=== PATIENT | male | born 1980 | race Caucasian/White ===

== ENCOUNTER 2016-08-26 18:06 | Emergency (ER) | payer SELFPAY ==
[~2016-08-26] VITALS: Ht 190.5 cm; Wt 96.4 kg
[~2016-08-26 18:06] MED LIST: MOTRIN; NITR0.4T8 SL
[2016-08-26 18:07] VITALS: BP 129/69
[2016-08-26] MEDS ORDERED: LORazepam 1MG TABLET PO ONE (19:00)
[2016-08-26 19:29] LABS: BLOOD UREA NITROGEN 19 mg/dL (7-18)
== END 2016-08-26 19:43 | disposition home or self-care (01) ==
LOC: ED 19:14
DX: T78.49XA Other allergy, initial encounter (principal); R45.1 Restlessness and agitation; R11.10 Vomiting, unspecified; F41.1 Generalized anxiety disorder; I25.2 Old myocardial infarction; G56.00 Carpal tunnel syndrome, unspecified upper limb; X58.XXXA Exposure to other specified factors, initial encounter
CPT/HCPCS: 36415; 80048; 99283

== ENCOUNTER 2016-09-30 09:35 | Emergency (ER) | payer SELFPAY ==
[~2016-09-30] VITALS: Ht 185.4 cm; Wt 95.0 kg
[2016-09-30] MEDS ORDERED: LORazepam 2 MG/ML, 1ML ONE (10:08)
[2016-09-30] MEDS ORDERED: LORazepam 2 MG/ML, 1ML IVPush ONE (10:30)
[2016-09-30 10:46] LABS: BLOOD UREA NITROGEN 22 mg/dL (7-18)
[2016-09-30 10:54] LABS: IS PT STATUS REG ER OR PRE ER? YES
[2016-09-30 11:47] VITALS: BP 118/72
== END 2016-09-30 12:17 | disposition home or self-care (01) ==
LOC: ED 11:30
DX: R07.89 Other chest pain (principal); F41.1 Generalized anxiety disorder; K04.6 Periapical abscess with sinus; G56.00 Carpal tunnel syndrome, unspecified upper limb; Z87.891 Personal history of nicotine dependence
CPT/HCPCS: 36415; 71010; 80048; 82040; 84439; 84443; 84484; 85025; 93005; 96374; 99285; J2060

== ENCOUNTER 2016-10-02 22:13 | Inpatient (IN) | payer SELFPAY ==
[~2016-10-02] VITALS: Ht 190.5 cm; Wt 92.9 kg
[2016-10-02] MEDS ORDERED: SODIUM CHLORIDE 0.9% 1,000ML IVBOLUS ONE (22:30)
[2016-10-02] MEDS ORDERED: SODIUM CHLORIDE FLUSH 10ML SYR IVF ONE (22:30)
[2016-10-02 22:41] LABS: ASPARTATE AMINO TRANSFERASE 32 U/L (15-37); BLOOD UREA NITROGEN 27 mg/dL (7-18)
[2016-10-02] MEDS ORDERED: LORazepam 2 MG/ML, 1ML ONE (23:51)
[2016-10-02] MEDS ORDERED: OMNIPAQUE 350 MG/ML, 100ML BOTTLE ONE (23:59)
[2016-10-03] MEDS ORDERED: LORazepam 2 MG/ML, 1ML IVPush ONE ×4 (00:30→15:00)
[2016-10-03] MEDS ORDERED: DOCUSATE 100 MG CAPSULE PO PRN (00:30)
[2016-10-03] MEDS ORDERED: TEMAZEPAM 15 MG CAPSULE PO PRN (00:30)
[2016-10-03] MEDS ORDERED: ENOXAPARIN 40 MG/0.4 ML SQ SCH (00:30)
[2016-10-03 01:10] VITALS: BP 134/69
[2016-10-03] MEDS: SODIUM CHLORIDE 0.9% 1,000 ML IV SCH ×3 (02:22→21:00)
[2016-10-03 04:46] LABS: DAU SCREEN DISCLAIMER
[2016-10-03 07:48] VITALS: BP 111/68
[2016-10-03] MEDS ORDERED: GADOBUTROL 10 MMOL/10 ML PFS ONE ×2 (08:34→15:37)
[2016-10-03 14:00] VITALS: BP 119/67
[2016-10-03 18:16] VITALS: BP 136/71
== END 2016-10-03 23:15 | disposition left against medical advice (07) | DRG 914 ==
LOC: ED 22:58 → EDIP 23:44 → 4EST 10-03 00:49
PROVIDERS: ADMIT Hospitalist; ATTEND Hospitalist
DX: S29.9XXA Unspecified injury of thorax, initial encounter (principal); S19.9XXA Unspecified injury of neck, initial encounter; X58.XXXA Exposure to other specified factors, initial encounter; Z83.3 Family history of diabetes mellitus; Z82.49 Family history of ischemic heart disease and other diseases of the circulatory system; I10 Essential (primary) hypertension; E87.6 Hypokalemia; F41.1 Generalized anxiety disorder; I25.2 Old myocardial infarction; G56.00 Carpal tunnel syndrome, unspecified upper limb; Y93.89 Activity, other specified; Y92.89 Other specified places as the place of occurrence of the external cause; Y99.8 Other external cause status; Z91.14 Patient's other noncompliance with medication regimen
CPT/HCPCS: 36415; 70450; 70496; 70498; 70553; 72156; 72157; 80047; 80053; 80061; 80307; 85025; 85610; 85730; 93005; 96361; 96374; A9585; J1650; Q9967; J2060; J7030

== ENCOUNTER 2016-10-06 20:08 | Emergency (ER) | payer SELFPAY ==
[2016-10-06 20:25] VITALS: BP 126/82
[2016-10-06] MEDS ORDERED: SODIUM CHLORIDE FLUSH 10ML SYR IVF ONE (20:30)
[2016-10-06] MEDS ORDERED: LORazepam 2 MG/ML, 1ML ONE (20:37)
[2016-10-06 20:56] LABS: BLOOD UREA NITROGEN 22 mg/dL (7-18)
[2016-10-06] MEDS ORDERED: LORazepam 2 MG/ML, 1ML IVPush ONE (21:00)
[2016-10-06] MEDS ORDERED: IBUPROFEN 200 MG TABLET ONE (22:41)
[2016-10-06] MEDS ORDERED: IBUPROFEN 200 MG TABLET PO ONE (23:00)
== END 2016-10-06 23:20 ==
LOC: ED 22:09
DX: R53.1 Weakness (principal); I10 Essential (primary) hypertension; I25.2 Old myocardial infarction; Z86.73 Personal history of transient ischemic attack (TIA), and cerebral infarction without residual deficits
CPT/HCPCS: 36415; 70450; 70551; 71010; 80047; 80048; 80307; 82040; 84484; 85025; 85610; 93005; 96374; 99285; J2060

== ENCOUNTER 2017-07-06 17:59 | Emergency (ER) | payer MEDICAID ==
[~2017-07-06] VITALS: Ht 190.5 cm; Wt 85.5 kg
[~2017-07-06 17:59] MED LIST changes: +NITR0.4T28 SL; -NITR0.4T8 SL
[2017-07-06 18:04] VITALS: BP 135/83
== END 2017-07-06 20:51 | disposition home or self-care (01) ==
LOC: ED 20:45
DX: S53.21XA Traumatic rupture of right radial collateral ligament, initial encounter (principal); S63.659A Sprain of metacarpophalangeal joint of unspecified finger, initial encounter; F17.210 Nicotine dependence, cigarettes, uncomplicated; F41.9 Anxiety disorder, unspecified; V49.49XA Driver injured in collision with other motor vehicles in traffic accident, initial encounter; Y93.89 Activity, other specified; Y99.8 Other external cause status; Y92.410 Unspecified street and highway as the place of occurrence of the external cause
CPT/HCPCS: 29125; 99284

== ENCOUNTER 2018-04-18 09:37 | Emergency (ER) | payer MEDICAID ==
[~2018-04-18] VITALS: Ht 190.5 cm; Wt 86.8 kg
[2018-04-18] MEDS ORDERED: SODIUM CHLORIDE FLUSH 10ML SYR IVF ONE (11:00)
[2018-04-18] MEDS ORDERED: ASPIRIN 81 MG TABLET CHEW PO ONE (11:00)
[2018-04-18] MEDS ORDERED: LORazepam 2 MG/ML, 1ML IVPush ONE (11:00)
[2018-04-18] MEDS ORDERED: ASPIRIN 81 MG TABLET CHEW ONE (11:11)
[2018-04-18] MEDS ORDERED: LORazepam 1MG TABLET ONE (11:12)
[2018-04-18 11:14] LABS: BASOPHILS # (AUTO) 0.02 x10^3/uL (0-0.1); BASOPHILS % (AUTO) 0 % (0-1); EOSINOPHILS # (AUTO) 0.08 x10^3/uL (0-0.4); EOSINOPHILS % (AUTO) 2 % (1-7); LYMPHOCYTES % (AUTO) 28 % (22-44); MD NO; MEAN CORPUSCULAR HGB CONC 34.1 g/dL (33.2-36.2); MONOCYTES # (AUTO) 0.46 x10^3/uL (0.2-0.8); MONOCYTES % (AUTO) 11 % (2-9); NEUTROPHILS # (AUTO) 2.55 x10^3/uL (1.8-6.8); NEUTROPHILS % (AUTO) 59 % (42-75); PLATELET COUNT 302 x10^3/uL (130-400); RED BLOOD COUNT 4.99 x10^6/uL (4.38-5.82); RED CELL DISTRIBUTION WIDTH 12.7 % (9.4-14.8)
[2018-04-18 11:21] LABS: ALBUMIN 4.1 g/dL (3.4-5.0); ANION GAP 3 mmol/L (5-15); CALCIUM 8.5 mg/dL (8.5-10.1); CHLORIDE 110 mmol/L (98-107); CREATININE 1.13 mg/dL (0.7-1.3)
[2018-04-18 11:24] LABS: TROPONIN I < 0.015 ng/mL (0.000-0.045)
[2018-04-18 11:25] VITALS: BP 129/80
== END 2018-04-18 12:10 | disposition home or self-care (01) ==
LOC: ED 11:52
DX: R07.89 Other chest pain (principal); F17.210 Nicotine dependence, cigarettes, uncomplicated; I10 Essential (primary) hypertension; I25.2 Old myocardial infarction
CPT/HCPCS: 36415; 80048; 82040; 83880; 84484; 85025; 93005; 99284

== ENCOUNTER 2019-03-31 09:52 | Emergency (ER) | payer MEDICAID ==
[~2019-03-31] VITALS: Ht 182.9 cm; Wt 94.3 kg
[2019-03-31 10:07] VITALS: BP 125/76
--- NOTE | 2019-03-31 10:23 | NUR ---
PATIENT BROUGTH BACK FROM TRIAGE WITH CHIEF COMPLAINT OF RIGHT KNEE PAIN STARTING A "FEW WEEKS AGO", WITH INTERMITTENT NUMBNESS, PULSES PRESENT. PATIENT DENIES RECENT TRAUMA
--- NOTE | 2019-03-31 10:46 | NUR ---
PATIENT TO IMAGING
--- NOTE | 2019-03-31 11:00 | NUR ---
DISCHARGE INSTUCTIONS REVIEWED
--- NOTE | 2019-03-31 11:09 | NUR ---
IMMOBILIZER APPLIED, PT REFUSED CRUTCHES
== END 2019-03-31 11:12 | disposition home or self-care (01) ==
LOC: ED 10:45
DX: M25.561 Pain in right knee (principal); I25.2 Old myocardial infarction; I10 Essential (primary) hypertension; F17.200 Nicotine dependence, unspecified, uncomplicated
CPT/HCPCS: 29505; 99283

== ENCOUNTER 2019-08-04 12:12 | Emergency (ER) | payer MEDICAID ==
[~2019-08-04] VITALS: Ht 190.5 cm; Wt 95.5 kg
[2019-08-04 12:14] VITALS: BP 130/91
[2019-08-04] MEDS ORDERED: LORazepam 1MG TABLET ONE (12:42)
[2019-08-04] MEDS ORDERED: LORazepam 1MG TABLET PO ONE (13:00)
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
--- NOTE | 2019-08-04 13:26 | NUR ---
DORI SEAY AT BEDSIDE.
[2019-08-04] MEDS ORDERED: MAALOX/HYOSCYAMINE/LIDOCAINE 45 ML BTL PO ONE (13:30)
[2019-08-04] MEDS ORDERED: ONDANSETRON ODT 4 MG PO ONE (13:30)
--- NOTE | 2019-08-04 13:50 | NUR ---
BREAK RN: FRANKIE MEADOWS IN ROOM. WILL CONTINUE TO MONITOR WHILE PRIMARY RN IS ON BREAK.
--- NOTE | 2019-08-04 14:50 | NUR ---
Patient/Caregiver given discharge instructions and they have confirmed that they understand the instructions. Patient ambulatory with steady gait.
== END 2019-08-04 14:53 | disposition home or self-care (01) ==
LOC: ED 12:56
DX: F41.1 Generalized anxiety disorder (principal); I10 Essential (primary) hypertension; I25.2 Old myocardial infarction; Z86.73 Personal history of transient ischemic attack (TIA), and cerebral infarction without residual deficits; Z87.891 Personal history of nicotine dependence
CPT/HCPCS: 93005; 99283

== ENCOUNTER 2020-02-28 09:44 | Emergency (ER) | payer MEDICAID ==
[~2020-02-28] VITALS: Ht 190.5 cm; Wt 96.0 kg
[2020-02-28 09:46] VITALS: BP 159/85
--- NOTE | 2020-02-28 09:54 | NUR ---
PT REFUSED ORAL TEMP "THE BOX IS OPEN AND I DONT WANT THAT PUT IN MY MOUTH" TEMPORAL SCAN DONE
--- NOTE | 2020-02-28 10:01 | NUR ---
BREAK RN: THIS IS A 39 YEAR OLD MALE WHO C/O "A COUPLE OF WEEKS AGO ON THE CORNER OF MY LEFT EYE THERE WAS A CUT AND IT STARTED OOZING OUT WHITE STUFF, IT WAS JUNKY, NOW THE VISION IN IT IS 3/4 GONE. WHEN I TURN MY HEAD LEFT AND RIGHT I GET DIZZY"
[2020-02-28] MEDS ORDERED: PROPARACAINE OPHTH 0.5%, 15ML ONE (10:03)
[2020-02-28] MEDS ORDERED: PROPARACAINE OPHTH 0.5%, 15ML LEFTEYE ONE (10:30)
--- NOTE | 2020-02-28 10:30 | NUR ---
dr pemberton spoke with dr mortensen
[2020-02-28] MEDS ORDERED: MECLIZINE CHEWABLE 25 MG TAB ONE (10:40)
--- NOTE | 2020-02-28 10:46 | NUR ---
MEDICATED PER EMAR- THEN DISCHARGED IN CARE OF SPOUSE IMMEDIATELT SO TO MAKE OPTHO APPT IN 15 MINUTES
[2020-02-28] MEDS ORDERED: MECLIZINE CHEWABLE 25 MG TAB PO ONE (11:00)
== END 2020-02-28 10:46 | disposition home or self-care (01) ==
LOC: ED 10:30
DX: H54.62 Unqualified visual loss, left eye, normal vision right eye (principal); R42 Dizziness and giddiness; I25.2 Old myocardial infarction; I10 Essential (primary) hypertension; F17.200 Nicotine dependence, unspecified, uncomplicated
CPT/HCPCS: 99283

== ENCOUNTER 2020-08-21 17:38 | Emergency (ER) | payer MEDICAID ==
[~2020-08-21] VITALS: Ht 190.5 cm; Wt 92.8 kg
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
--- NOTE | 2020-08-21 18:12 | NUR ---
PT SITTING UPRIGHT IN GURNEY, SPEAKING CLEARLY WITH FULL SENTENCES, PROTECTING OWN AIRWAY AT THIS TIME.
[2020-08-21] MEDS ORDERED: LORazepam 2 MG/ML, 1ML ONE (18:25)
[2020-08-21] MEDS ORDERED: LORazepam 2 MG/ML, 1ML IVPush ONE (18:30)
[2020-08-21] MEDS ORDERED: SODIUM CHLORIDE FLUSH 10ML SYR IVF ONE (18:30)
--- NOTE | 2020-08-21 19:08 | NUR ---
PT RESTING IN BED COMFORTABLY. CALL LIGHT WITHIN REACH. AT BEDSIDE
[2020-08-21] MEDS ORDERED: OXYMETAZOLINE NASAL SPRAY 0.05%,30ML ONE (19:59)
[2020-08-21] MEDS ORDERED: OXYMETAZOLINE NASAL SPRAY 0.05%, 15ML NAS ONE (20:00)
--- NOTE | 2020-08-21 20:15 | NUR ---
ENT AT BEDSIDE
--- NOTE | 2020-08-21 20:58 | NUR ---
RECEIVED REPORT FROM MARJ.
[2020-08-21 21:35] VITALS: BP 121/80
== END 2020-08-21 21:38 | disposition home or self-care (01) ==
LOC: ED 18:08
DX: S12.8XXA Fracture of other parts of neck, initial encounter (principal); F41.1 Generalized anxiety disorder; Y08.89XA Assault by other specified means, initial encounter; Y93.89 Activity, other specified; Y92.89 Other specified places as the place of occurrence of the external cause; Y99.8 Other external cause status
CPT/HCPCS: 96374; 99283; J2060

== ENCOUNTER 2020-11-03 21:30 | Emergency (ER) | payer MEDICAID ==
[~2020-11-03] VITALS: Ht 190.5 cm; Wt 95.0 kg
[2020-11-03 21:35] VITALS: BP 166/104
== END 2020-11-03 22:44 | disposition home or self-care (01) ==
LOC: ED 22:42
DX: M79.10 Myalgia, unspecified site (principal); R50.9 Fever, unspecified; R05 Cough; Z20.822 Contact with and (suspected) exposure to COVID-19; I10 Essential (primary) hypertension; F17.200 Nicotine dependence, unspecified, uncomplicated
CPT/HCPCS: 87635; 99283

== ENCOUNTER 2020-11-07 21:38 | Emergency (ER) | payer MEDICAID ==
--- NOTE | 2020-11-07 21:53 | NUR ---
PT ARRIVES WITH S/O. VERY RUDE TO STAFF IN TRIAGE. DEMANDING TO BE TRAIGED TOGETHER. DEMANDING TO BE ROOMED TOGETHER. BOTH WERE EDUCATED ON PROCESS. PTS THEN BECOME IRATE AND STARTED YELLING AT STAFF, CUSSING AND POSTURING AGGRESSIVELY. ESCORTED OUT BY SECURITY. LEFT WITH OUT BEINGING SEEN. UNABLE TO COMPLETE TRIAGE DUE TO PT AGGRESSION AND NONCOMPLIANCE WITH HOSPITAL POLICIES. PT CALLED THIS RN "A FAT BITCH" AND CALLED CADENCE WISE RN "AN IGNORANT PIECE OF SHIT" PT YELLING AND CUSSING AT EVERY STAFF MEMBER WHO WALKED BY TRAIGE ROOM.
== END 2020-11-07 22:38 | disposition left against medical advice (07) ==
LOC: ED 22:08
DX: R05 Cough (principal); R68.83 Chills (without fever); Z53.21 Procedure and treatment not carried out due to patient leaving prior to being seen by health care provider